=== PATIENT | female | born 1955 | race Caucasian/White ===

== ENCOUNTER → 2016-05-02 | Outpatient (CLI) | payer BC | LOC: RAD 17:15 | DX: M54.5 Low back pain (principal); M47.816 Spondylosis without myelopathy or radiculopathy, lumbar region | CPT/HCPCS: 72110 ==

== ENCOUNTER → 2016-05-12 | Outpatient (CLI) | payer BC | LOC: CT 07:34 | DX: M54.5 Low back pain (principal); M41.86 Other forms of scoliosis, lumbar region; M51.36 Other intervertebral disc degeneration, lumbar region; M48.06 Spinal stenosis, lumbar region; G95.89 Other specified diseases of spinal cord; M25.78 Osteophyte, vertebrae | CPT/HCPCS: 72131 ==